=== PATIENT | male | born 1985 | race Caucasian/White ===

== ENCOUNTER → 2021-11-02 09:30 | Outpatient (BNVA) | payer OTHER, SELFPAY | PROVIDERS: Visit Provider Physician Assistant | DX: Z13.89 Encounter for screening for other disorder (principal) | CPT/HCPCS: 99202 ==

== ENCOUNTER 2021-11-03 03:13 | Inpatient (IN) | payer OTHER, SELFPAY ==
--- NOTE | ~2021-11-03 | XR_ITS ---
EXAMINATION: XR HAND, RIGHT CLINICAL INFORMATION: Right hand pain with lymphangitis and cellulitis. COMPARISON: None TECHNIQUE: PA, lateral, and oblique views of the right hand. FINDINGS: The bones and soft tissues are normal. No fracture. Alignment is anatomic. Joint spaces are maintained. No erosions or soft tissue calcifications. XR/XR hand RT min 3V IMPRESSION: Unremarkable right hand exam.
[2021-11-03 03:16] VITALS: BP 128/85; PULSE 100; RESP 16; TEMP 36.7; O2SAT 97; BMI 24.2
--- NOTE | 2021-11-03 07:41 | ED.EXTPRO ---
HPI - Extremity Problem General Chief complaint: Extremity Injury, Upper Stated complaint: infected?/swollen right arm Time Seen by Provider: 11/03/21 04:16 Source: patient Mode of arrival: ambulatory Limitations: no limitations History of Present Illness HPI Narrative: 36-year-old male presents to emergency department with injury to his right hand 3 days ago. Patient noticed swelling went to the were connection and was prescribed antibiotics which has not feel for 2 days to he woke up and noticed streaks his hand. Patient denies fevers chills nausea vomiting or diarrhea. MD Complaint: extremity pain and extremity swelling Onset (ago): day(s) Related Data Allergies Allergy/AdvReac Type Severity Reaction Status Date / Time No Known Allergies Allergy Verified 11/03/21 07:39 Review of Systems Review of Systems: Review of systems: General: Patient denies any fever chills recent illness or falls Musculoskeletal: Denies back pain or body aches or other injuries HEENT: denies headache, runny nose, ear pain Respiratory: denies shortness of breath, cough Cardiovascular: no chest pain or palpitations : denies dysuria, frequency Abdomen: no nausea vomiting denies abdominal pain Extremities: Right hand palmar aspect of thumb with redness pain and swelling streaking up the arm Skin: no diaphoresis Yes all other systems are reviewed and are negative Physical Exam Vital Signs: Vital Signs: Last Vital Signs Temp 98.1 F 11/03/21 03:16 Pulse 100 11/03/21 03:16 Resp 16 11/03/21 03:16 BP 128/85 11/03/21 03:16 Pulse Ox 97 11/03/21 03:16 BMI result Body Mass Index 24.2 General: Well-appearing well-nourished in no signs of distress HEENT: Normocephalic atraumatic Neck: No signs of JVD, no masses no tenderness or lymphadenopathy Cardiovascular: Regular rate and rhythm Respiratory: Clear to auscultation bilaterally Abdomen: Soft nontender no masses rectal exam performed guia negative quality improvement consultant confirmed. Extremities: Normal pedal pulses no signs of edema Skin: tender indurated right home just below the thumb with streaking going up the arm.Dry warm no rashes Back: No tenderness full ROM MDM - Extremity (Nontraumatic) MDM Narrative Medical decision making narrative: Cellulitis within the dryness patient has been noncompliant medications I will get a x-ray to see if there is any loose foreign bodies I will start the patient on Ancef and vancomycin I presume patient need to be admitted since the Vicky ordered present. [id number] X-rays okay labs show white count of 11 feel this patient will need admission started on vancomycin Ancef on arrival. I did notify hand specialist and does involve home aspect of the hand Dr. Colon did come and evaluate the patient. I paged Dr. Betancourt. [id number] Dr. Betancourt agreed to admit the patient. Lab Data Result diagrams: 11/03/21 08:42 11/03/21 08:42 Labs: Lab Results 11/03/21 11/03/21 Range/Units 08:42 08:42 WBC 11.0 H (4.8-10.8) X10*3/uL RBC 4.30 L (4.60-5.80) X10*6/uL Hgb 13.9 L (14.0-18.0) g/dl Hct 40.9 L (42.0-52.0) % MCV 95.1 (80.0-98.0) fL MCH 32.3 (27.0-33.0) pg MCHC 34.0 (31.0-36.0) g/dl RDW 11.8 (11.0-16.0) % Plt Count 166 (160-400) X10*3/uL MPV 11.1 (9.4-12.4) fL Immature Gran % (Auto) 0.3 (0.0-0.4) % Neut % (Auto) 76.0 H (45-73) % Lymph % (Auto) 14.5 L (20-40) % [place] % (Auto) 7.5 (2-11) % Eos % (Auto) 1.2 (0-4) % Baso % (Auto) 0.5 (0-2) % Lymph # (Auto) 1.6 (1.2-4.9) X10*3/uL [place] # (Auto) 0.8 (0.1-1.2) X10*3/uL Eos # (Auto) 0.1 (0.0-0.4) X10*3/uL Baso # (Auto) 0.1 (0.0-0.2) X10*3/uL Abs Immat Gran (auto) 0.03 (0.00-0.03) X10*3/uL Absolute Neuts (auto) 8.4 H (2.0-8.3) x10*3/uL Absolute Nucleated RBC 0.000 (0.0-0.012) X10*3/uL Nucleated RBC % (auto) 0.0 (0.0-0.2) /100WBC Lactic Acid 0.6 (0.5-2.0) mmol/L Imaging Data xR hand shows soft tissue swelling but no radiopaque FB: Attestation: I personally reviewed and interpreted this imaging study as follows: My impression: No radiopaque fb with soft tissue swelling Discharge Plan Discharge Clinical Impression: Cellulitis of skin with lymphangitis Patient Disposition: Admitted As Inpatient
[2021-11-03] MEDS: 0.9 % Sodium Chloride 500 ML 999 ML IV (08:15)
[2021-11-03 08:52] LABS: Basophils Absolute Auto 0.1 X10*3/uL (0.0-0.2); Basophils Percent Auto 0.5 % (0-2); Eosinophils Absolute Auto 0.1 X10*3/uL (0.0-0.4); Eosinophils Percent Auto 1.2 % (0-4); Hematocrit 40.9 % (42.0-52.0); Hemoglobin 13.9 g/dl (14.0-18.0); Imm Gran Abs Auto 0.03 X10*3/uL (0.00-0.03); Imm Gran Pct Auto 0.3 % (0.0-0.4); Lymphocytes Absolute Auto 1.6 X10*3/uL (1.2-4.9); Lymphocytes Percent Auto 14.5 % (20-40); MANUAL DIFF FLAG NO; Mean Corpuscular Hemoglobin 32.3 pg (27.0-33.0); Mean Corpuscular Volume 95.1 fL (80.0-98.0); Mean Platelet Volume 11.1 fL (9.4-12.4); Monocytes Absolute Auto 0.8 X10*3/uL (0.1-1.2); Monocytes Percent Auto 7.5 % (2-11); Neutrophils Absolute Auto 8.4 x10*3/uL (2.0-8.3); Platelet Count 166 X10*3/uL (160-400); Red Cell Distribution Width 11.8 % (11.0-16.0)
[2021-11-03 09:04] LABS: Lactic Acid 0.6 mmol/L (0.5-2.0)
[2021-11-03 09:17] LABS: Anion Gap 9 (12-20); Blood Urea Nitrogen 12 mg/dL (9-16); Calcium 8.9 mg/dL (8.4-10.2); Carbon Dioxide 25 mmol/L (22-29); Chloride 109 mmol/L (96-108); Creatinine Clr Calc Pharmacy 130.3; Estimated Glomerular Filt Rate > 60; Glucose Random 103 mg/dL (60-115); Sodium 139 mmol/L (135-145)
[2021-11-03] MEDS: Acetaminophen 325 MG TABLET 650 MG PO (09:19)
[2021-11-03] MEDS: Ketorolac Tromethamine 30 MG/ML VIAL 15 MG IVPUSH (09:22)
[2021-11-03] MEDS: ceFAZolin Sodium/Dextrose,Iso 2 GM/50 ML PIGGYBACK IV (09:24)
--- NOTE | 2021-11-03 09:46 | PM.CNOR ---
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 He does not recall what punctured his hand. Since that time he has developed increasing redness pain and swelling in his right hand. He had been seen at [facility] and given a prescription for oral antibiotics but did not fill it. Today he presents to us in the emergency department with ascending lymphangitis above the elbow. He denies having problems with numbness and tingling. Most of his pain is in the mid palmar area radiating proximally. Meds Allergies Allergy/AdvReac Type Severity Reaction Status Date / Time No Known Allergies Allergy Verified 11/03/21 07:39 Active Medications: Current Medications Pharmacy Consult (Consult Rx Vancomycin Dosing) 1 each MISCELLANE DAILY PRN PRN Reason: Consult order Pharmacy Consult (Consult Rx Perform Med Rec) 1 each MISCELLANE ONCE PRN PRN Reason: Consult order Physical Exam Vital Signs: Vital Signs: Last Vital Signs Temp 98.1 F 11/03/21 03:16 Pulse 100 11/03/21 03:16 Resp 16 11/03/21 03:16 BP 128/85 11/03/21 03:16 Pulse Ox 97 11/03/21 03:16 BMI result Body Mass Index 24.2 Const: General: cooperative, healthy appearing and no acute distress Orientation/consciousness: oriented to person and oriented to place HENMT: Head: Yes normocephalic and Yes atraumatic Eyes: EOM: EOMs intact bilaterally Resp: Effort & Inspection: normal respiratory effort and able to speak in complete sentences Cardio: Jugular venous distension: no JVD Skin: General skin exam: turgor normal Rashes: no rashes Neuro: General: oriented to person and oriented to place Extrem: Other: Evaluation of Right Upper Extremity: Neuro: Median, ulnar, radial nerves motor and sensory intact. sensation intact to the tips of all digits. Vascular: Cap refill brisk. He has a small puncture wound over radial base of the right thumb the radial thenar aspect. no drainage He has good active flexion and extension of the thumb without significant discomfort . Similarly, he can actively flex and extend his fingers without significant discomfort. He does have an area of redness and swelling extending from the mid palm across the carpal tunnel with ascending lymphangitis up the volar forearm above the elbow. He is most tender to palpation over this mid palmar aspect of his hand Radiographs: three views of his right hand were reviewed by me today. They show no foreign bodies and no fractures or dislocations. Psych: Appearance: grossly normal Affect: normal affect Attitude: cooperative Results Labs Result Diagrams: 11/03/21 08:42 11/03/21 08:42 Labs: Abnormal lab results 11/03/21 11/03/21 Range/Units 08:42 08:42 WBC 11.0 H (4.8-10.8) X10*3/uL RBC 4.30 L (4.60-5.80) X10*6/uL Hgb 13.9 L (14.0-18.0) g/dl Hct 40.9 L (42.0-52.0) % Neut % (Auto) 76.0 H (45-73) % Lymph % (Auto) 14.5 L (20-40) % Absolute Neuts (auto) 8.4 H (2.0-8.3) x10*3/uL Chloride 109 H (96-108) mmol/L Anion Gap 9 L (12-20) H & H 11/03/21 Range/Units 08:42 Hgb 13.9 L (14.0-18.0) g/dl Hct 40.9 L (42.0-52.0) % All other labs normal. Assessment and Plan (1) Cellulitis of skin with lymphangitis: Status: Acute assessment and plan: 1. Right hand cellulitis with ascending lymphangitis status post puncture wound approximately 3 days ago good active flexion and extension of the fingers and the thumb without significant discomfort. Not worrisome for flexor tenosynovitis at this point. Present he appears to have a cellulitis with an ascending lymphangitis. He will be admitted to the hospitalist team for course of IV antibiotics. I educated the patient about this condition. I let him know he will probably be in the hospital for least a couple days of IV antibiotics. I am hopeful that he will not need operative intervention, but if he does not improve significantly with the IV antibiotics it is possible that he may need an I&D of his hand. Procedures Date of Service Date of Service: 11/03/21
[2021-11-03 10:30] LABS: COVID-19 Test Negative (Negative); IDNOW Serial# 9DD0AD1C
[2021-11-03] MEDS: vancomycin HCL 1,500 MG in 0.9 % Sodium Chloride 500 ML 333.33 MG IV (10:32)
--- NOTE | 2021-11-03 11:09 | PHA.MEDREC ---
Pharmacy Consult ? Medication Reconciliation Pharmacy has completed the medication reconciliation. Patient reports taking no medications at home. Jolynn Lubin, LuD
--- NOTE | 2021-11-03 11:56 | PM.IMHP ---
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 He reports that he went to [facility] and was discharged with oral antibiotics which has been unable to fill. He rpoerts that the laceration scabbed over but he noticed that his hand began to hurt more over the last several days. He noticed swelling and redness near the site and then his wrist. Subsequently, he began noticing a red streak going down his foerarm. On the day of admission, he reports feeling cold, but denied any fevers. ' In the ED, he was given IV kefzol and iv vancomcyin. He was evaluated by a hand surgeon who recommended IV antibiotics with daily evaluation -- hopefully I&D can be avoided. Review of Systems Review of Systems: negative except HPI PMFSH Medical History (Updated 11/03/21 @ 15:00 by Rodrigue De La Torre MD) No pertinent past medical history Pertinent family history: denies any significant Past family history Surgical History (Updated 11/03/21 @ 15:00 by Rodrigue De La Torre MD) No pertinent past surgical history Social History (Updated 11/03/21 @ 15:00 by Rodrigue De La Torre MD) Tobacco use type: Cigarette Cigarette Packs Per Day: 0.5 Use of substances other than those prescribed or required for medical reasons: No Advance Directives: No Advance Directives Information Provided: No Meds Allergies Allergy/AdvReac Type Severity Reaction Status Date / Time No Known Allergies Allergy Verified 11/03/21 07:39 Active Medications: Current Medications Acetaminophen (Acetaminophen 325 Mg Tablet) 650 mg PO Q6H PRN PRN Reason: Pain, Mild (Pain Scale 1-3) Ondansetron HCl (Ondansetron Hcl 4 Mg/2 Ml Vial) 4 mg IVPUSH Q8H PRN PRN Reason: Nausea and Vomiting Pharmacy Consult (Consult Rx Vancomycin Dosing) 1 each MISCELLANE DAILY PRN PRN Reason: Consult order Pharmacy Consult (Consult Rx Perform Med Rec) 1 each MISCELLANE ONCE PRN PRN Reason: Consult order Sodium Chloride (0.9 % Sodium Chloride Flush 3 Ml Syringe) 3 ml IVFLUSH QSHIFT [facility] Home Medications Medication Instructions Recorded Confirmed Last Taken Type No Known Home Meds 11/03/21 11/03/21 Unknown History Physical Exam Vital Signs and Narrative: Vital Signs: Last Vital Signs Temp 98.1 F 11/03/21 03:16 Pulse 100 11/03/21 03:16 Resp 16 11/03/21 03:16 BP 128/85 11/03/21 03:16 Pulse Ox 97 11/03/21 03:16 BMI result Body Mass Index 24.2 Const: Other: Constitutional - Awake and Alert, No apparent distress Eyes - PERRLA, EOMI Cardiovascular - S1S2, RRR, No edema Respiratory - Normal lung expansion, Normal respiratory effort, No respiratory distress, CTA bilaterally Gastrointestinal - NT / ND; +BS; No rebound or guarding - No CVA tenderness Extremities - no calf tenderness bilaterally, no swelling Musculoskeletal - Normal inspection, normal ROM Skin - Warm/Dry; see picutres below Neurological - Alert & oriented x3, No focal deficit Psychological - Appropriate affect Skin: Other: Results Labs CBC and Chem 7: 11/03/21 08:42 11/03/21 08:42 Labs: Laboratory Results - last 24 hr 11/03/21 11/03/21 11/03/21 08:42 08:42 08:42 MCV 95.1 MCH 32.3 MCHC 34.0 RDW 11.8 Plt Count 166 MPV 11.1 Immature Gran % (Auto) 0.3 Neut % (Auto) 76.0 H Lymph % (Auto) 14.5 L [place] % (Auto) 7.5 Eos % (Auto) 1.2 Baso % (Auto) 0.5 Lymph # (Auto) 1.6 [place] # (Auto) 0.8 Eos # (Auto) 0.1 Baso # (Auto) 0.1 Abs Immat Gran (auto) 0.03 Absolute Neuts (auto) 8.4 H Absolute Nucleated RBC 0.000 Nucleated RBC % (auto) 0.0 Anion Gap 9 L Estim Creat Clear Calc 130.3 Estimated GFR > 60 Random Glucose 103 Lactic Acid 0.6 Calcium 8.9 COVID-19 ([facility]) COVID-19 Clin Com 11/03/21 09:58 MCV MCH MCHC RDW Plt Count MPV Immature Gran % (Auto) Neut % (Auto) Lymph % (Auto) [place] % (Auto) Eos % (Auto) Baso % (Auto) Lymph # (Auto) [place] # (Auto) Eos # (Auto) Baso # (Auto) Abs Immat Gran (auto) Absolute Neuts (auto) Absolute Nucleated RBC Nucleated RBC % (auto) Anion Gap Estim Creat Clear Calc Estimated GFR Random Glucose Lactic Acid Calcium COVID-19 ([facility]) Negative COVID-19 Clin Com See Note Imaging Radiologist's Impressions: Impressions Hand X-Ray 11/03/21 08:16 IMPRESSION: Unremarkable right hand exam. Assessment and Plan (1) Cellulitis of skin with lymphangitis: Status: Acute This is a 36 yo M with no significant PMH who presents to the ED with complaints of worsening RUE swelling, pain and erythema about 3 days after he noticed a laceration on the R wrist. 1. Cellulitis and ascending lymphangitis In the setting up known injury to the RUE, palm region has received Tdap at [facility] IV kezol + IV vancomcyin; monitor renal function and vancomcyin trough / levels per pharmacy protocol Seen by Hand surgery who recommended IV antibiotics for several days and if not improved, may need surgical intervention f/u cultures no evidence of sepsis at this time 2. Tobacco use patch Full Code DVT pptx, low risk -- early ambulation + mechanical Quality Stroke Does the patient have a stroke diagnosis?: No VTE Prior VTE?: No VTE Risk Level:: Medical - low VTE Device Contraindication: N/A - Device Ordered VTE Drug Contraindication: Treatment Not Indicated
[2021-11-03 12:00] VITALS: BP 102/67; PULSE 67; RESP 16; TEMP 36.7; O2SAT 99
--- NOTE | 2021-11-03 12:07 | PHA.PROG ---
Admission Date/Time: November 03, 2021 11:51 Indication: Cellulitis Weight in k.039 kg Adjusted body weight in K.49 kg Heber body weight in K.8 kg Obesity Dosing Indication % IBW: N/A Serum Creatinine - Last 168 Hours 11/03/21 08:42 Creatinine 0.70 Estimated CrCl and GFR - Last 168 Hours 11/03/21 08:42 Estim Creat Clear Calc 130.3 Estimated GFR > 60 Vancomycin Loading Dose: 1500 mg Current Vancomycin Dosing Regimen: 1250 mg Q12H Date and Time for next Vancomycin Level to be drawn: 11/04 @ 1999 Pharmacist Comments on Vancomycin Plan: Loading dose Vancomycin 1500 mg given 11/03 @ 1032. Maitenance dose 1250 mg Q12H will start 11/03 @ 2200. Expected AUC 493 with a trough of 13.8 Trough will be drawn before the third dose Pharmacy to monitor renal function daily Jolynn Lubin PharmD Vancomycin dosing will take advantage of [employer] as a clinical decision support tool that uses Bayesian modeling to calculate individual patient's pharmacokinetic parameters and forecast the patient's drug concentration time course with the target goal AUC 24 range of 400 - 600 mg/L/hr.
[2021-11-03 15:57] VITALS: BP 100/66; PULSE 73; RESP 16; TEMP 36.8; O2SAT 98
[2021-11-03 16:00] VITALS: BP 125/74; PULSE 66; RESP 16; TEMP 36.6; O2SAT 99
[2021-11-03] MEDS: 0.9 % Sodium Chloride Flush 3 ML SYRINGE IVFLUSH ×3 (16:01→23:54)
[2021-11-03 20:24] VITALS: BMI 25.0
[2021-11-03] MEDS: vancomycin HCL 1,250 MG in 0.9 % Sodium Chloride 250 ML 166.67 MG IV (22:08)
[2021-11-04] VITALS: BP 95/60; PULSE 66; RESP 18; TEMP 36.3; O2SAT 99
[2021-11-04 03:27] VITALS: BP 118/53; PULSE 70; RESP 12; TEMP 36.6; O2SAT 98
[2021-11-04 05:47] LABS: MANUAL DIFF FLAG NO
[2021-11-04 06:05] LABS: Basophils Percent Auto 0.5 % (0-2); Eosinophils Absolute Auto 0.2 X10*3/uL (0.0-0.4); Eosinophils Percent Auto 2.6 % (0-4); Hematocrit 39.1 % (42.0-52.0); Imm Gran Abs Auto 0.02 X10*3/uL (0.00-0.03); Imm Gran Pct Auto 0.3 % (0.0-0.4); Lymphocytes Percent Auto 25.4 % (20-40); Mean Corpuscular HGB Conc 33.2 g/dl (31.0-36.0); Mean Corpuscular Hemoglobin 32.3 pg (27.0-33.0); Mean Corpuscular Volume 97.3 fL (80.0-98.0); Mean Platelet Volume 11.6 fL (9.4-12.4); Monocytes Absolute Auto 0.8 X10*3/uL (0.1-1.2); Neutrophils Absolute Auto 4.8 x10*3/uL (2.0-8.3); Neutrophils Percent Auto 61.2 % (45-73); Platelet Count 167 X10*3/uL (160-400); Red Blood Count 4.02 X10*6/uL (4.60-5.80); Red Cell Distribution Width 11.8 % (11.0-16.0); White Blood Count 7.8 X10*3/uL (4.8-10.8)
[2021-11-04 06:35] LABS: Anion Gap 9 (12-20); Blood Urea Nitrogen 13 mg/dL (9-16); Calcium 8.7 mg/dL (8.4-10.2); Carbon Dioxide 27 mmol/L (22-29); Chloride 108 mmol/L (96-108); Estimated Glomerular Filt Rate > 60; Glucose Random 96 mg/dL (60-115); Potassium 3.9 mmol/L (3.3-5.1); Sodium 140 mmol/L (135-145)
[2021-11-04 07:47] VITALS: BP 114/69; PULSE 66; RESP 18; TEMP 36.5; O2SAT 98
--- NOTE | 2021-11-04 08:15 | PM.PNORT ---
Subjective Subjective Date of Service: 11/04/21 Interval history: LOS: 2 No overnight events Patient feels as though his hand is improving Denies fever or chills Denies pain Physical Exam Vital Signs: Vital Signs: Last Vital Signs Temp 97.7 F 11/04/21 07:47 Pulse 66 11/04/21 07:47 Resp 18 11/04/21 07:47 BP 114/69 11/04/21 07:47 Pulse Ox 98 11/04/21 07:47 BMI result Body Mass Index 25.0 Extrem: Other: Right hand is soft. There is some swelling in the fingers but he is able to make a full fist and fully extend of digits. He has no pain or swelling in the thenar aspect of the hand no pain along the carpal canal. He has full range of motion of the wrist. No pain with axial loading of the wrist or fingers. Procedures Date of Service Date of Service: 11/04/21 Progress Note: A&P Assessment and plan (1) Cellulitis of skin with lymphangitis: Status: Acute Assessment and Plan: At this time I think it is appropriate to continue with IV antibiotics and to continue monitoring his symptoms. If he continues to improve no need for surgical intervention. I recommended that he elevate the arm and work on hand motion to help with the swelling. Fall Risk Details Current Medications: Current Medications Acetaminophen (Acetaminophen 325 Mg Tablet) 650 mg PO Q6H PRN PRN Reason: Pain, Mild (Pain Scale 1-3) Cefazolin Sodium 1 gm/ Sodium (Chloride) 50 mls @ 100 mls/hr IV Q8H [facility] Last Infusion: 11/04/21 00:28 Dose: Infused Documented by: Vancomycin HCl 1,250 mg/ (Sodium Chloride) 250 mls @ 166.667 mls/hr IV Q12H [facility] Last Infusion: 11/03/21 23:54 Dose: Infused Documented by: Nicotine (Nicotine 14 Mg Patch.Td24) 14 mg TRANSDERMA DAILY [facility] Last Admin: 11/03/21 16:01 Dose: Not Given Documented by: Ondansetron HCl (Ondansetron Hcl 4 Mg/2 Ml Vial) 4 mg IVPUSH Q8H PRN PRN Reason: Nausea and Vomiting Pharmacy Consult (Consult Rx Vancomycin Dosing) 1 each MISCELLANE DAILY PRN PRN Reason: Consult order Pharmacy Consult (Consult Rx Perform Med Rec) 1 each MISCELLANE ONCE PRN PRN Reason: Consult order Pharmacy Consult (Consult Rx Vancomycin Dosing) 1 each MISCELLANE DAILY PRN PRN Reason: Consult order Sodium Chloride (0.9 % Sodium Chloride Flush 3 Ml Syringe) [facility] Last Admin: 11/03/21 23:54 Dose: 3 ml Documented by: Time Spent With Patient Time: Total time spent is greater than 50% in coordination of care (as documented) at patient's floor/unit and/or counseling patient: Time with patient: less than 15 minutes Quality Stroke Does the patient have a stroke diagnosis?: No VTE Prior VTE?: No VTE Risk Level:: Medical - low VTE Device Contraindication: N/A - Device Ordered VTE Drug Contraindication: Treatment Not Indicated
--- NOTE | 2021-11-04 08:59 | MHC.CM.PN ---
Addendum entered by Brynn Rosario 11/04/21 09:22: PATIENT IS COVID VACCINATED PFIZER 03/21/21 PFIZER 04/11/21 Original Note: PATIENT LIVES WITH AND DAUGHTER NO DME OR VNA SERVICES HE HAS NO PCP AND IS WAITING FOR HIS [employer] INSURANCE HE IS A NEW EMPLOYEE HERE. PATIENT IS WILLING TO ASSIGN HIS HCP, NAMING HIS . HCP TO BE UPLOADED INTO [facility] IS HOME NO SERVICES. PATIENT HAS TRANSPORT HOME
[2021-11-04] MEDS: 0.9 % Sodium Chloride Flush 3 ML SYRINGE IVFLUSH (09:02)
[2021-11-04] MEDS: Nicotine 14 MG PATCH.TD24 TRANSDERMA (09:02)
[2021-11-04] MEDS: vancomycin HCL 1,250 MG in 0.9 % Sodium Chloride 250 ML 166.67 MG IV (09:43)
--- NOTE | 2021-11-04 10:15 | P.DS_ITS ---
DS: Providers Provider Date of Service: 11/04/21 Date of admission: 11/03/21 11:51 Primary care physician: Unknown Physician Consults: 11/03/21 09:48 Consult to Orthopedics Stat Consulting Provider: Cleopatra Colon Reason for consultation: hand infection with lymphangitis Has provider been notified: Yes 11/03/21 11:50 Consult to Orthopedics Routine Consulting Provider: Cleopatra Colon Reason for consultation: hand infection with lymphangitis Has provider been notified: Yes DS: Diagnosis Discharge Diagnosis (1) Cellulitis of skin with lymphangitis: Status: Acute DS: Summary Hospital Course Hospital Course: HPI From the admission H&P: 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 He reports that he went to [facility] and was discharged with oral antibiotics which has been unable to fill. He rpoerts that the laceration scabbed over but he noticed that his hand began to hurt more over the last several days. He noticed swelling and redness near the site and then his wrist. Subsequently, he began noticing a red streak going down his foerarm. On the day of admission, he reports feeling cold, but denied any fevers. ' In the ED, he was given IV kefzol and iv vancomcyin. He was evaluated by a hand surgeon who recommended IV antibiotics with daily evaluation -- hopefully I&D can be avoided. Hospital Course: Patient was started on IV kefzol and IV vancomcyin. He was evaluated by hand surgery. Within 24 hours, the patient had resolution of his pain and erythema. There is minimal edema, but his range of motion is nearly normal. He remains afebrile and his luekocytosis is resolved. His blood cultures are negative to date. Patient will be transitioned to oral Keflex and Doxycycline for 10 more days. He has been educated on the alarm symptoms of worsening infection. He is to return to the ED should he have those. Time Spent with Patient Time attestation: Total time spent providing and/or coordinating discharge services: Discharge coordination time: Greater than 30 minutes Quality: Stroke Does the patient have a stroke diagnosis?: No Physical Exam Vital Signs: Vital Signs: Last Vital Signs Temp 97.7 F 11/04/21 07:47 Pulse 66 11/04/21 07:47 Resp 18 11/04/21 07:47 BP 114/69 11/04/21 07:47 Pulse Ox 98 11/04/21 07:47 BMI result Body Mass Index 25.0 Const: Other: General - no acute distress, appears comfortable Cardiovascular - regular rate and rhythm, S1-S2 Lungs - normal respiratory effort, clear to auscultation bilaterally, no wheezing Abdomen - soft, nontender, no rebound or guarding Extremities - RUE erythema and TTP resolved; mild swelling, but ROM at wrist joint / fingers is near normal. Neuro - awake and alert, no focal deficits DS: Data Data Completed and Pending Labs on day of discharge: Laboratory Results - last 24 hr 11/03/21 11/04/21 11/04/21 09:58 05:31 05:31 WBC 7.8 RBC 4.02 L Hgb 13.0 L Hct 39.1 L MCV 97.3 MCH 32.3 MCHC 33.2 RDW 11.8 Plt Count 167 MPV 11.6 Immature Gran % (Auto) 0.3 Neut % (Auto) 61.2 Lymph % (Auto) 25.4 [place] % (Auto) 10.0 Eos % (Auto) 2.6 Baso % (Auto) 0.5 Lymph # (Auto) 2.0 [place] # (Auto) 0.8 Eos # (Auto) 0.2 Baso # (Auto) 0.0 Abs Immat Gran (auto) 0.02 Absolute Neuts (auto) 4.8 Absolute Nucleated RBC 0.000 Nucleated RBC % (auto) 0.0 Sodium 140 Potassium 3.9 Chloride 108 Carbon Dioxide 27 Anion Gap 9 L BUN 13 Creatinine 0.76 Estim Creat Clear Calc 120.0 Estimated GFR > 60 Random Glucose 96 Calcium 8.7 COVID-19 ([facility]) Negative COVID-19 Clin Com See Note Discharge Plan Discharge Patient Disposition: Home, Self-Care Discharge Diagnosis: Cellulitis with ascending lymphangitis Referrals: Physician,Unknown J [Primary Care Provider] - 1 Week Discharge Medications: New cephalexin 500 mg capsule 500 mg PO QID Qty: 40 RF: 0 doxycycline hyclate 100 mg tablet 100 mg PO BID Qty: 20 RF: 0 Discharge Orders: Discharge Order (Routine); Ordered 11/04/21 Ordered By: Rodrigue De La Torre Diet: advance to usual diet Activity on Discharge: As tolerated Stand Alone Forms: Patient Portal Discharge page Care Plan Goals: To stay healthy and out of the hospital. Health Concerns: Hand infection Plan of Treatment: Take antibiotics for 10 more days. If your pain/swelling/redness worsens, or you have any fevers or chills -- return to the emergency room. Assessment: see discharge summary
== END 2021-11-04 11:36 | disposition home or self-care (01) | DRG 383 ==
LOC: HO.ED 08:59 → HO.EDOVER 11:57 → HO.S3 19:15
PROVIDERS: Admitting Provider Family Medicine; Emergency Provider Student in an Organized Health Care Education/Training Program; Visit Provider Family Medicine
DX: L03.113 Cellulitis of right upper limb (principal); F17.210 Nicotine dependence, cigarettes, uncomplicated; Z20.822 Contact with and (suspected) exposure to COVID-19; Z71.6 Tobacco abuse counseling
CPT/HCPCS: 36415; 73130; 80048; 83605; 85025; 87040; 87635; 90471; 96365; 96375; 99285; J0690; J1885; J3370

== ENCOUNTER 2023-03-01 08:57 | Outpatient (REF) | payer OTHER, SELFPAY ==
[2023-03-01 11:55] LABS: Influenza A PCR NEGATIVE (Negative); Influenza B PCR NEGATIVE (Negative); Resp Syncy Virus RNA Qual PCR NEGATIVE (Negative); SARS COV2 PCR INHOUSE NEGATIVE (Negative)
== END 2023-03-01 08:58 | disposition home or self-care (01) ==
LOC: HO.LAB 08:57
PROVIDERS: Visit Provider Internal Medicine
DX: Z20.822 Contact with and (suspected) exposure to COVID-19 (principal); R09.89 Other specified symptoms and signs involving the circulatory and respiratory systems
CPT/HCPCS: 0241U

== ENCOUNTER 2024-04-15 14:47 | Outpatient (AMB) | payer OTHER, SELFPAY ==
--- NOTE | 2024-04-15 14:52 | A.OFFPC_ITS ---
Vital Signs 04/15/24 14:54 Height 5 ft 5 in Weight 147 lb 6 oz BMI 24.5 BP 110/60 Blood Pressure Location Lt brachial Position Sitting Pulse 78 Pulse Source Pulse Oximeter Pulse Oximetry (%) 98 Oxygen Delivery Method Room Air Intake Visit Reasons: annual exam-establish [facility] Page Intake Note: Patient is here today for a physical and MARIAH from BS. Grants Analyst Required: No Shearing Supervisor: Not Required per policy Accompanied by: Self / Same As Patient Allergies No Known Allergies Allergy (Verified 04/15/24 18:54) Medication List - Last Reconciled 04/15/24 by Mark Silva MD No Known Home Meds Tobacco use date assessed: 04/15/24 Dental Screening Dental Screen Date: 04/15/24 Did you have a dental visit in the last 12 months?: No Did you have a dental problem in the last 6 months where you did not have access to dental care?: No Was dental information given to patient?: No HPI annual exam-establish [facility] Page HPI Details 38-year-old male presents to the office requesting an annual physical. In addition, patient would like a lesion on his left foot examined. Significant discomfort between the 3rd and 4th toes on the left foot. [facility] Medical History (Updated 04/15/24 @ 19:01 by Mark Silva MD) Tobacco use disorder Acute pharyngitis No pertinent past medical history Cellulitis of skin with lymphangitis Surgical History No pertinent past surgical history Family History Mother Diabetes Father Diabetes High blood pressure Sister No problems noted. Sister No problems noted. Sister No problems noted. Brother No problems noted. Son No problems noted. Social History Household Members: Family Housing: Apartment Do you presently have visiting nurse or other home services: No Alcohol intake: never Patient Tobacco Use Status: Current everyday Tobacco user Tobacco use type: Cigarette Cigarette Packs Per Day: 0.5 Cigarettes Per Day: 10 e-Cigarette/Vaping Use: Never Used Second Hand Smoke Exposure: Yes service: No Current occupational status: employed Current occupational exposures/hazards: No Cognitive needs: No Hearing needs: No Vision needs: No Questionnaire PHQ-9 Over the last 2 weeks, how often have you been bothered by any of the following problems? 1. Little interest or pleasure in doing things: not at all 2. Feeling down, depressed, or hopeless: not at all 3. Trouble falling or staying asleep, or sleeping too much: not at all 4. Feeling tired or having little energy: not at all 5. Poor appetite or overeating: not at all 6. Feeling bad about yourself - or that you are a failure or have let yourself or your family down: not at all 7. Trouble concentrating on things, such as reading the newspaper or watching television: not at all 8. Moving or speaking so slowly that other people could have noticed. Or the opposite - being so fidgety or restless that you have been moving around a lot more than usual: not at all 9. Thoughts that you would be better off or of hurting yourself in some way: not at all Total score: 0 Depression Screening Interpretation: Negative Depression Screening Done: Yes Source: Developed by Drs. Jai Brasher, Kelley Magallon, Song Kilpatrick and colleagues, with an educational chaya from [employer]. Thrive Questionnaire Date Thrive assessed: 04/15/24 I am a: Patient What is your living situation today?: I have a steady place to live Within the past 12 months, did the food you bought not last and you didn't have the money to get more?: Never true Within the past 12 months, did you worry whether your food would run out before you got money to buy more?: Never true Do you have trouble paying for medicines?: No Do you have trouble getting transportation to medical appointments?: No Do you have trouble paying your heating and electricity bill?: No Do you have trouble taking care of your child, family member or friend?: No Do you have trouble with day-to-day activities such as bathing, preparing meals, shopping, managing finances, etc.?: No Are you currently unemployed and looking for a job?: No Are you interested in more education?: No Currently or been in a relationship where the following occur: no concerns reported THRIVE Score: 0 AUDIT C Alcohol Use Questionnaire (AUDIT-C) 1. How often do you have a drink containing alcohol?: Never Total Score: 0 NYDIA-7 AMB Questionnaire NYDIA-7 Date NYDIA - 7 assessed: 04/15/24 Feeling nervous, anxious, or on edge: 0 = Not at all Not being able to stop or control worryin = Not at all Worrying too much about different things: 0 = Not at all Trouble relaxin = Not at all Being so restless that it is hard to sit still: 0 = Not at all Becoming easily annoyed or irritable: 0 = Not at all Feeling afraid as if something awful might happen: 0 = Not at all Total NYDIA-7 score (0-4 normal; 5-9 mild; 10-14 moderate; 15-21 severe): 0 Source: Developed by Drs. Jai Brasher, Kelley Magallon, Song Kilpatrick and colleagues, with an educational chaya from [employer]. Physical exam (Primary Care) Vital Signs: Last Vital Signs Pulse 78 04/15/24 14:54 BP 110/60 04/15/24 14:54 Pulse Ox 98 04/15/24 14:54 Oxygen Delivery Method Room Air 04/15/24 14:54 BMI result Body Mass Index 24.5 Tobacco/Smoking Status: Tobacco use Status Tobacco use date assessed 04/15/24 04/15/24 14:56 Patient Tobacco Use Status Current everyday Tobacco 04/15/24 14:56 Tobacco use type Cigarette 04/15/24 14:56 e-Cigarette/Vaping Use Never Used 04/15/24 14:56 Are you ready to quit: No PHQ-9: PHQ-9 Score PHQ-9: Total score 0 04/15/24 14:56 Depression Screening Interpretation: Negative Thrive Assessment: Date of Thrive Assessment Date Thrive assessed 04/15/24 04/15/24 14:56 Currently or been in a relationship where the following occur: no concerns reported Const General: cooperative and healthy appearing Nutritional Appearance: well nourished Orientation/consciousness: patient oriented x3 Limitations: no limitations HENMT Head: Yes normal to inspection Eyes General: appearance normal, both eyes and all related structures Neck Neck: Yes normal visual inspection Chest Chest palpation & inspection: normal palpation of entire chest wall Resp Effort & Inspection: normal respiratory effort Neuro General: patient oriented x3 Extrem Other: Left foot: Callus between the 3rd and 4th toe, painful Assessment and Plan Assessment & Plan (1) Callus between toes: Code(s): L84 - Corns and callosities Plan: The callus needs to be removed. Podiatry consult requested. (2) Adult general medical exam: Code(s): Z00.00 - Encounter for general adult medical examination without abnormal findings Plan: Blood work has been ordered. (3) Tobacco use disorder: Code(s): F17.200 - Nicotine dependence, unspecified, uncomplicated Plan: Counseling to quit smoking done. Orders: Orders Complete Blood Count no Diff Today Z13.220 - Encounter for screening for lipoid disorders Basic Metabolic Panel Today Z13.220 - Encounter for screening for lipoid disorders Lipid Panel Today Z13.220 - Encounter for screening for lipoid disorders Liver Panel Today Z13.220 - Encounter for screening for lipoid disorders Thyroid Stimulating Hormone Today Z13.220 - Encounter for screening for lipoid disorders UA and rflx microscopic Today Z13.220 - Encounter for screening for lipoid disorders Referrals Podiatry Referral L84 - Corns and callosities Coding Level of Care Code Est Pt Prev Care 18-39y(27067) Diagnoses Callus between toes L84 Adult general medical exam Z00.00 Tobacco use disorder F17.200
[2024-04-15 14:54] VITALS: BP 110/60; PULSE 78; O2SAT 98; BMI 24.5
== END 2024-04-15 15:22 | disposition home or self-care (01) ==
PROVIDERS: PCP Internal Medicine; Visit Provider Internal Medicine
DX: L84 Corns and callosities (principal); Z00.00 Encounter for general adult medical examination without abnormal findings; F17.200 Nicotine dependence, unspecified, uncomplicated
CPT/HCPCS: 99395

== ENCOUNTER 2024-05-21 15:09 | Outpatient (AMB) | payer OTHER, SELFPAY ==
[2024-05-21 15:15] VITALS: BP 118/84; PULSE 92; TEMP 36.6; O2SAT 99; BMI 24.0
--- NOTE | 2024-05-21 15:15 | MHC.OFFWIV ---
Intake Vital Signs 05/21/24 15:15 Height 5 ft 5 in Weight 144 lb 8 oz BMI 24.0 BP 118/84 Blood Pressure Location Lt brachial Position Sitting Pulse 92 Pulse Source Pulse Oximeter Temp 97.9 F Temp Source Temporal Artery Scan Pulse Oximetry (%) 99 Oxygen Delivery Method Room Air Intake Visit Reasons: EP ?Virus - diarrhea, nausea, vomiting Intake Note: Phil is a 38 year old male who presents to the office today for nausea,vomiting,diarrhea, headache, body aches and chills that started 05/19/24. Pt states his [employer] provider tested positive for covid. Patient Tobacco Use Status: Current everyday Tobacco user Allergies No Known Allergies Allergy (Verified 05/21/24 15:16) HPI HPI Comments History of Present Illness Details Patient is a 38-year-old male complaining of 2 days of headache, body aches, head congestion, nausea, vomiting and diarrhea. He denies any bloody black or watery stools. He also states he had a fever of 100 degrees F yesterday but it resolved. He has been taking ibuprofen which seemed to help the most as well as NyQuil and DayQuil. He denies any history of asthma. 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 [facility] Medical History (Updated 05/21/24 @ 15:40 by Marissa Upton PA-C) Tobacco use disorder Acute pharyngitis No pertinent past medical history Cellulitis of skin with lymphangitis Surgical History No pertinent past surgical history Family History Mother Diabetes Father Diabetes High blood pressure Sister No problems noted. Sister No problems noted. Sister No problems noted. Brother No problems noted. Son No problems noted. Social History Household Members: Family Housing: Apartment Do you presently have visiting nurse or other home services: No Alcohol intake: never Patient Tobacco Use Status: Current everyday Tobacco user Tobacco use type: Cigarette Cigarette Packs Per Day: 0.5 Cigarettes Per Day: 10 e-Cigarette/Vaping Use: Never Used Second Hand Smoke Exposure: Yes service: No Current occupational status: employed Current occupational exposures/hazards: No Cognitive needs: No Hearing needs: No Vision needs: No Review of Systems Const All systems reviewed & are unremarkable except as noted in HPI and below Physical Exam Vital Signs: Last Vital Signs Temp 97.9 F 05/21/24 15:15 Pulse 92 05/21/24 15:15 BP 118/84 05/21/24 15:15 Pulse Ox 99 05/21/24 15:15 Oxygen Delivery Method Room Air 05/21/24 15:15 BMI result Body Mass Index 24.0 Const General: cooperative, healthy appearing, comfortable and no acute distress Orientation/consciousness: patient oriented x3 Limitations: no limitations HEENT Head: Yes normal to inspection Ears: hearing grossly normal bilaterally, external ears normal and TM's normal bilaterally General nose exam: Normal external nose present, Normal nares present and No nasal discharge present Face and sinus: Yes normal facial exam and Yes sinuses nontender Mouth: Normal oral and palatal mucosa present and moist mucous membranes Throat: Yes tonsils normal, Yes uvula midline and Yes posterior oropharynx abnormal (Erythema) Eyes General: appearance normal, both eyes and all related structures Neck Neck: Yes normal visual inspection Resp Effort & Inspection: normal respiratory effort, able to speak in complete sentences, no respiratory distress, not tachypneic, no tripod positioning and no use of accessory muscles Auscultation: clear to auscultation bilaterally Cardio Rate: regular rate Rhythm: regular rhythm Heart sounds: normal S1 and S2 Skin General skin exam: no rashes or lesions noted Neuro General: patient oriented x3 Extrem General: Yes normal to inspection and Yes no clubbing, cyanosis or edema Assessment & Plan Assessment & Plan (1) URI (upper respiratory infection): Code(s): J06.9 - Acute upper respiratory infection, unspecified Qualifiers: URI type: unspecified viral URI Qualified Code(s): J06.9 - Acute upper respiratory infection, unspecified Plan: Sent flu, COVID and RSV, recommended continuing to treat symptoms with [id number] medications. Wrote work note for 4 days. Discussed Paxlovid but patient would not qualify if he does test positive for COVID, he was fine with it. Plan see above Orders: Orders SARS-CoV2/FLU/RSV Today J06.9 - Acute upper respiratory infection, unspecified Coding Level of Care Code Est Pt Level 3 (88576) Diagnoses Viral upper respiratory tract infection J06.9 URI type: unspecified viral URI
== END 2024-05-21 15:57 | disposition home or self-care (01) ==
PROVIDERS: PCP Internal Medicine; Visit Provider Physician Assistant
DX: J06.9 Acute upper respiratory infection, unspecified (principal)
CPT/HCPCS: 99213

== ENCOUNTER 2024-05-21 15:32 | Outpatient (REF) | payer OTHER, SELFPAY ==
[2024-05-22 11:42] LABS: Influenza A PCR NEGATIVE (Negative); Influenza B PCR NEGATIVE (Negative); Resp Syncy Virus RNA Qual PCR NEGATIVE (Negative); SARS COV2 PCR INHOUSE NEGATIVE (Negative)
== END 2024-05-21 15:33 | disposition home or self-care (01) ==
LOC: HO.LAB 15:32
PROVIDERS: Visit Provider Physician Assistant
DX: J06.9 Acute upper respiratory infection, unspecified (principal)
CPT/HCPCS: 0241U

== ENCOUNTER 2024-11-26 14:22 | Emergency (ER) | payer SELFPAY ==
--- NOTE | ~2024-11-26 | XR_ITS ---
EXAMINATION: XR CHEST CLINICAL INFORMATION: congested cough COMPARISON: None available. TECHNIQUE: 2 views of the chest were obtained. FINDINGS: No significant abnormality is noted involving the heart, lungs, mediastinum, bony thorax or soft tissues. XR/XR chest 2V IMPRESSION: Unremarkable chest examination. Electronically signed by: Rubén Ortiz MD 11/26/2024 03:50 PM [facility]
[2024-11-26 15:08] VITALS: BP 131/89; PULSE 103; RESP 18; TEMP 37.1; O2SAT 99; BMI 25.0
--- NOTE | 2024-11-26 15:10 | ED.GENADULT ---
HPI - General Adult General Chief complaint: Upper Respiratory Symptoms Stated complaint: Flu Symptoms Time Seen by Provider: 11/26/24 19:34 Source: patient Mode of arrival: ambulatory Limitations: no limitations History of Present Illness HPI narrative: This is a 39-year-old man with no significant past medical history presents for evaluation dyspnea, cough, fever, myalgias and fatigue. The patient states last fever a couple of days ago. He states T-max to 102? F. he states no chest pain. He states no trauma. He states no sputum production or hemoptysis. He states no leg swelling or pain. He states no recent surgery. He states no abdominal pain or urinary symptoms. He states he does smoke cigarettes daily. Related Data Home Medications ?Medication ?Instructions ?Recorded ?Confirmed No Known Home Meds 04/04/23 04/04/23 Allergies Allergy/AdvReac Type Severity Reaction Status Date / Time No Known Allergies Allergy Verified 11/26/24 15:09 Review of Systems Review of Systems: ROS as per HPI Yes all other systems are reviewed and are negative PMFSH Past Medical History Medical History (Updated 11/26/24 @ 19:36 by Christopher Lowery MD) Tobacco use disorder Acute pharyngitis No pertinent past medical history Cellulitis of skin with lymphangitis Surgical History No pertinent past surgical history Family History Family History Mother Diabetes Father Diabetes High blood pressure Sister No problems noted. Sister No problems noted. Sister No problems noted. Brother No problems noted. Son No problems noted. Social History Social History Household Members: Family Housing: Apartment Do you presently have visiting nurse or other home services: No Alcohol intake: never Patient Tobacco Use Status: Current everyday Tobacco user Tobacco use type: Cigarette Cigarette Packs Per Day: 0.5 Cigarettes Per Day: 10 e-Cigarette/Vaping Use: Never Used Second Hand Smoke Exposure: Yes Advance Directives: No Advance Directives Information Provided: Yes service: No Current occupational status: employed Current occupational exposures/hazards: No Cognitive needs: No Hearing needs: No Vision needs: No Physical Exam ED Vital Signs: Vital Signs - 24 hr 11/26/24 15:08 11/26/24 20:00 Temperature 98.8 F 97.8 F Pulse Rate 103 H 86 Respiratory Rate 18 16 Blood Pressure 131/89 125/93 H Pulse Oximetry 99 100 Oxygen Delivery Method Room Air Room Air BMI result Body Mass Index 25.0 Gen: NAD, AOx3 HEENT: NCAT, EOMI, normal conjunctiva CV: RRR Pulm: CTAB, no increased work of breathing GI: Soft, NTND, no rebound, guarding or rigidity Neuro: Grossly non focal Course Course Course Narrative: This is a Rapid Medical Examination (RME) performed by Kavon Amaral PA-C in triage. Full HPI, ROS, assessment and treatment plan per primary provider in the Main ED. 39 yo male here for eval of congested cough and SOB x3 days. 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 Plan: viral/ strep swabs, CXR Medical Decision Making Medical Decision Making [facility] Narrative: Differential diagnosis includes, but is not limited to viral URI, pneumonia, pneumothorax. Patient is afebrile and hemodynamically stable on room air. Exam is benign and reassuring. I reviewed viral testing and strep throat test as below. On re-examination, patient is well-appearing and in no acute distress.? I suspect that symptoms are most likely secondary to viral upper respiratory tract infection and there is no indication for further emergent evaluation in this otherwise well-appearing patient as above. ?Patient is provided written and verbal instructions, educational materials, recommendations for outpatient follow-up, strict return precautions and teach back is performed. ?Patient states understanding and agreement with plan of care. ?Patient is discharged home in stable and improved condition. Admission/Observation Consideration of admission/observation: Escalation of care including admission/observation considered Lab Data [facility] Lab Attestation statement: I reviewed the patient's lab results. Patient is negative for COVID-19, influenza and RSV. Strep throat negative. Labs: Lab Results 11/26/24 Range/Units 15:13 Influenza Type A (PCR) NEGATIVE (Negative) Influenza Type B (PCR) NEGATIVE (Negative) RSV RNA Qual (PCR) NEGATIVE (Negative) SARS-CoV-2 RNA (RT-PCR) NEGATIVE (Negative) S. pyogenes GrpA MARIA A Negative (Negative) Discharge Plan Discharge Clinical Impression: Upper respiratory infection, viral Patient Disposition: Home, Self-Care Additional Instructions: You were seen and evaluated in the emergency room. Your vital signs were reassuring. You tested negative for COVID-19, influenza and RSV. Your strep test was negative. Your chest x-ray showed no evidence of pneumonia. Please take 600 mg ibuprofen every 6 hours as needed for pain/fever. Please always take this medication with food and water. You may take 1000 mg Tylenol every 8 hours as needed for additional pain/fever relief. Please be sure to stay hydrated by drinking at least a cups of water. Please follow-up with your primary care doctor in the next 5-7 days. ? Please return to the emergency room if you develop any worsening symptoms. Prescriptions: No Action No Known Home Meds Stand Alone Forms: Work/School Release Interventions: ED Discharge Assessment Last Done: 11/26/24 20:00 Discharge Date/Time: 11/26/24 20:02 Print Language: Sammarinese
[2024-11-26 15:27] LABS: IDNOW Serial# 58CA691E; Strep A Nucleic Acid Negative (Negative)
[2024-11-26 16:08] LABS: Influenza A PCR NEGATIVE (Negative); Influenza B PCR NEGATIVE (Negative); Resp Syncy Virus RNA Qual PCR NEGATIVE (Negative); SARS COV2 PCR INHOUSE NEGATIVE (Negative)
--- OUTSIDE RECORDS SUMMARY | 2024-11-26 19:38 | XMS_ITS ---
Author Organization [facility] Address [address] [place] [address] Care Team Providers Care Manufacturing Development Engineer Name Role Phone Mark Silva Primary Care Provider Rox Gonzales [phone] Encounters Encounter Location Date Provider Diagnosis [facility] [address] [place] [address] 07/23/2024 Rox Gonzales Plan Of Treatment No Information Progress Notes * Phil LOFTON MDOB: [birth year] (39 yo M)Acc No.[id number]:07/23/2024 Progress Notes Patient:?Phil LOFTON Provider:?Rox Gonzales DPM :1985???Age:39 Y???Sex:Male Carson e:07/23/2024 Address:[address] , [id number] Pcp:Mark Silva Subjective: * Chief Complaints: * ??? * Medical History:? Objective: * Vitals:? Assessment: Plan: * Treatment: * Images: * The named appointment provid er may or may not be the originator of this progress note, and it is not deemed complete until electronically signed by the appointment provider. Sign off status: Pending * Provider:?Rox Gonzales DPM Date:? Generated for Trupti wallace/Merry/Franciscasmitting on:?11/26/2024 07:37 PM EST
--- OUTSIDE RECORDS SUMMARY | 2024-11-26 19:38 | XMS_ITS | Clinical Summary ---
Author Organization [facility] ity Address [address] [place] [address] Care Team Providers Care Dehydrator Operator Name Role Phone Unavailable Primary Care Provider Unavailabl e Social History Tobacco Use Types Packs/Day Years Used Date Smoking Tobacco: Never Assessed Sex and Gender Information Value Date Recorded Sex Assigned at Not on file Gender Identity Not on file Sexual Orientation Not on file Plan of Treatment Health Maintenance Due Date Last Done Comments DTaP,Tdap,and Td Vaccines (1 - Tdap) 2003 Hepatitis B Vaccines (1 of 3 - 19+ 3-dose series) 2003 COVID-19 Vaccine (2023-2 5 season) 2024 Influenza Vaccine (#1) 2024 HIB Vaccines Aged Out No longer eligi ble based on patient's age to complete this topic HPV Vaccines Aged Out No longer eligi ble based on patient's age to complete this topic Hepatitis A Vaccines Aged Out No long er eligible based on patient's age to complete this topic IPV Vaccines Aged Out No longer eligi ble based on patient's age to complete this topic MMR Vaccines Aged Out No longer eligi ble based on patient's age to complete this topic Meningococcal ACWY Vaccine Aged Out N o longer eligible based on patient's age to complete this topic Pneumococcal Vaccine: Pediat rics (0 to 5 Years) and At-Risk Patients (6 to 64 Years) Aged Out No longer eligible b ased on patient's age to complete this topic RSV Immunization Patients Un jayme 20 months Aged Out No longer eligible b ased on patient's age to complete this topic Varicella Vaccines Aged Out No longer eligible based on patient's age to complete this topic
--- OUTSIDE RECORDS SUMMARY | 2024-11-26 19:38 | XMS_ITS ---
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 Generated for Ediliai madison/Merry/eTransmitting on:?11/26/2024 07:37 PM EST
--- OUTSIDE RECORDS SUMMARY | 2024-11-26 19:38 | XMS_ITS | Patient Health Record ---
Author Organization [facility] Address [address] [place] [address] Care Team Providers Care Terminal Manager Name Role Phone RicardoMark Primary Care Provider [phone] Rox Gonzales [phone] Reason For Referral No Information Encounters Encounter Location Date Provider Diagnosis [facility] [address] [place] [address] 06/24/2024 Rox Gonzales Plan Of Treatment No Information Insurance Providers Payer Name Payer Address Payer Phone Subscriber Number Group Number Insured Name Patient Relationship to Insured Coverage Start Date Coverage End Date [employer] Benefits [address] [address] [place] [address] [id number] Phil Najera Self - patient is the insured
[2024-11-26 20:00] VITALS: BP 125/93; PULSE 86; RESP 16; TEMP 36.6; O2SAT 100
== END 2024-11-26 20:02 | disposition home or self-care (01) ==
PROVIDERS: Physician Assistant Medical; Emergency Provider Emergency Medicine
DX: J06.9 Acute upper respiratory infection, unspecified (principal); R50.9 Fever, unspecified; R06.02 Shortness of breath; M79.10 Myalgia, unspecified site; R05.9 Cough, unspecified; F17.210 Nicotine dependence, cigarettes, uncomplicated; Z03.818 Encounter for observation for suspected exposure to other biological agents ruled out; Z79.899 Other long term (current) drug therapy
CPT/HCPCS: 0241U; 71046; 87651; 99282; 99283

== ENCOUNTER → 2024-11-26 15:09 | Outpatient (BNV) | payer OTHER, SELFPAY | PROVIDERS: Visit Provider Radiology Diagnostic Radiology | DX: R05.9 Cough, unspecified (principal) | CPT/HCPCS: 71046 ==